=== PATIENT | female | born 1970 | race Caucasian/White ===

== ENCOUNTER 2017-12-17 13:16 | Emergency (ER) | payer BC, OTHER ==
[2017-12-17 13:32] VITALS: BP 116/75; PULSE 105; RESP 19; TEMP 99.3; O2SAT 96
[2017-12-17] MEDS ORDERED: Alum-Mag Hydrox-Simethicone Susp (30 mL) PO STA (13:39)
[2017-12-17] MEDS ORDERED: Belladonna-Phenobarbital PO STA (13:39)
--- NOTE | 2017-12-17 13:41 | C.PDOC ---
History Of Present Illness 47 y/o female presents to ED with c/o nausea, vomiting and diarrhea for 5 days after returning from [place]. Patient states pain is cramping and is associated with watery stool. Patient denies fever, chills, blood in stool, back pain, dysuria or any other complaints at this time. Time Seen by Provider: 12/17/17 13:33 Chief Complaint (Nursing): Abdominal Pain History Per: Patient History/Exam Limitations: no limitations Onset/Duration Of Symptoms: Days Current Symptoms Are (Timing): Still Present Past Medical History Reviewed: Historical Data, Nursing Documentation, Vital Signs Vital Signs: Last Vital Signs Temp 99.3 F 12/17/17 13:27 Pulse 105 H 12/17/17 13:27 Resp 19 12/17/17 13:27 BP 116/75 12/17/17 13:27 Pulse Ox 96 12/17/17 13:42 - Medical History PMH: No Chronic Diseases Surgical History: Appendectomy, Cholecystectomy Family History: States: No Known Family Hx - Social History Hx Alcohol Use: Yes Hx Substance Use: No - Immunization History Hx Tetanus Toxoid Vaccination: Yes Hx Influenza Vaccination: No Hx Pneumococcal Vaccination: No Review Of Systems Constitutional: Negative for: Fever, Chills Gastrointestinal: Positive for: Nausea, Vomiting, Abdominal Pain, Diarrhea Genitourinary: Negative for: Dysuria Musculoskeletal: Negative for: Back Pain Skin: Negative for: Rash Physical Exam - Physical Exam Appears: Non-toxic, No Acute Distress Skin: Warm, Dry, No Rash Head: Atraumatic, Normacephalic Eye(s): bilateral: Normal Inspection Ear(s): Bilateral: Other (blue tympanic membrane tubes in place) Oral Mucosa: Moist Neck: Supple Cardiovascular: Rhythm Regular Respiratory: Normal Breath Sounds, No Rales, No Rhonchi, No Wheezing Gastrointestinal/Abdominal: Soft, No Tenderness, No Guarding, No Rebound Back: No CVA Tenderness Neurological/Psych: Oriented x3, Normal Speech, Normal Cognition ED Course And Treatment O2 Sat by Pulse Oximetry: 96 (RA) Pulse Ox Interpretation: Normal Medical Decision Making Medical Decision Making: suspect traveler's diarrhea, returned from [place] 5 days ago empiric tx Disposition Doctor Will See Patient In The: Office Counseled Patient/Family Regarding: Studies Performed, Diagnosis - Disposition Referrals: Bashir Smiley MD [Medical Doctor] - Disposition: HOME/ ROUTINE Disposition Time: 13:41 Condition: GOOD Additional Instructions: Cipro 500 mg twice a day (antibiotic) as empiric treatment for Traveler's Diarrhea Zofran 4 mg ODT (for nausea, dissolves in mouth) one tab every 8 hours as needed Bentyl 20 mg tab (for abd spasms and diarrhea) one tab every 8 hours as needed Maalox 30 cc's (one tablespoon) 5x/day Pepcid 20 mg (lowers stomach acid) twice a day (9 AM and 9PM) for 1 week BRAT diet: Bananas, white Rice, apples/applesauce, toast/breat for 3 days Drink plenty of water/tea/Gatorade Prescriptions: Ciprofloxacin [Cipro] 1 tab PO BID #6 tab Dicyclomine [Bentyl] 20 mg PO Q8H PRN #10 tab PRN Reason: Diarrhea Ondansetron HCl [Zofran] 4 mg PO Q8H PRN #6 tablet PRN Reason: Nausea/Vomiting Ondansetron ODT [Zofran ODT] 4 mg PO Q6H PRN #6 odt PRN Reason: Nausea/Vomiting Instructions: Traveler's Diarrhea Forms: [facility] (Micronesian), Work Excuse - Clinical Impression Clinical Impression: Gastroenteritis - Scribe Statement The provider has reviewed the documentation as recorded by the Kishoribhiwot Becerril All medical record entries made by the Kishoribhiwot were at my direction and personally dictated by me. I have reviewed the chart and agree that the record accurately reflects my personal performance of the history, physical exam, medical decision making, and the department course for this patient. I have also personally directed, reviewed, and agree with the discharge instructions and disposition.
[2017-12-17] MEDS ORDERED: Belladonna-Phenobarbital ONE (13:46)
[2017-12-17] MEDS ORDERED: Alum-Mag Hydrox-Simethicone Susp (30 mL) ONE (13:46)
== END 2017-12-17 13:57 | disposition home or self-care (01) ==
LOC: C.ER 13:16
DX: K52.9 Noninfective gastroenteritis and colitis, unspecified (principal)